=== PATIENT | male | born 1990 | race Caucasian/White ===

== ENCOUNTER 2025-03-15 08:57 | Emergency (ER) | payer OTHER, SELFPAY ==
--- NOTE | 2025-03-15 09:03 | ED.WOUNDLAC ---
HPI - Wound/Laceration General Chief Complaint: Wound/Laceration Stated Complaint: FINGER LACERATION Time Seen by Provider: 03/15/25 09:05 Source: patient Mode of arrival: ambulatory Limitations: no limitations History of Present Illness HPI narrative: Ray is a 35-year-old male patient presenting to the clinic today with complaints of a cut to his right middle distal medial finger. He reports he cut it at work approximately 1 hour ago. Bleeding is controlled. Tetanus is up-to-date per patient. Sensation, circulation, and motion of the right middle finger normal Related Data Home Medications ?Medication ?Instructions ?Recorded ?Confirmed ?Last Taken ?Type No Home Medications 03/15/25 03/15/25 Unknown History Allergies Allergy/AdvReac Type Severity Reaction Status Date / Time Penicillins Allergy Mild Rash Verified 03/15/25 09:12 Review of Systems Review of Systems: Pertinent positives per HPI. Patient denies any fever, chills, rash, headache, visual changes, dizziness, cough, runny nose, sore throat, shortness of breath, chest pain, palpitations, nausea, vomiting, diarrhea, constipation, abdominal pain, or any urinary issues. PMFSH Comments At the time of my signature, I reviewed and agree with the nursing past medical, surgical, social, and family history. There is no relevant family history pertinent to the patient complaint. Exam Narrative: General: Well-developed, well nourished, in no apparent distress Head: Normocephalic, atraumatic. Cardio: Regular rate and rhythm, s1 and s2 normal, no murmur appreciated. Resp: Clear to auscultation bilaterally, no rhonchi, rales, wheezing or rubs. Integumentary: [place], warm, and dry, 1 cm laceration to the right 3rd distal medial finger without nail involvement, bleeding controlled Course Course Emergency Course: Portions of this record may have been created with voice recognition software. Level of Care: Express Care Visit Vital Signs Vital signs: Vital Signs Temperature 36.6 C 03/15/25 09:07 Pulse Rate 76 03/15/25 09:07 Respiratory Rate 14 03/15/25 09:07 Blood Pressure 133/87 03/15/25 09:07 Pulse Oximetry 100 03/15/25 09:07 Oxygen Delivery Room Air 03/15/25 09:07 Temperature 36.6 C 03/15/25 09:07 Pulse Rate 76 03/15/25 09:07 Respiratory Rate 14 03/15/25 09:07 Blood Pressure 133/87 03/15/25 09:07 Pulse Oximetry 100 03/15/25 09:07 Oxygen Delivery Room Air 03/15/25 09:07 Vital signs reviewed MDM - Wound/Laceration MDM Narrative Medical decision making narrative: At the time of visit patient is resting comfortably on the exam table. Patient appears to be nontoxic. Complaints of a cut to his right middle distal medial finger. He reports he cut it at work approximately 1 hour ago. Bleeding is controlled. Tetanus is up-to-date per patient. Sensation, circulation, and motion of the right middle finger normal. On exam patient has a 1 cm laceration to the right 3rd mid distal finger. Discussed laceration repair risk and benefits and patient agrees to procedure. Procedures: Laceration repair was performed. Wound was cleansed with antiseptic wound wash, lidocaine 0.5 mL injected into the surrounding wound tissue, 5-0 3 interrupted sutures were placed bringing wound edges well approximate. Patient tolerated well. Dressing was applied Plan: Patient has laceration to the right middle distal medial 5th finger. Laceration repair was performed. Sutures out in 7 days. Work note was given for today. Supportive measures were discussed with the patient and they voiced understanding discharge instructions and agrees to treatment plan. Return precautions reviewed Differential Diagnosis Differential diagnosis: Likely laceration, abscess, abrasion and avulsion of skin Discharge Plan Discharge Clinical Impression: Finger laceration Qualifiers: Encounter type: initial encounter Finger: middle finger Damage to nail status: without damage Foreign body presence: without foreign body Laterality: right Qualified Code(s): S61.212A - Laceration without foreign body of right middle finger without damage to nail, initial encounter Patient Disposition: Home Condition: Stable Instructions: Antibiotic Form, Care For Your Stitches (ED), Laceration (ED) Additional Instructions: Leave bandage on for 24 hours then may remove and apply band aide covering as needed. Keep wound clean and dry Wash daily with soap and water May take Tylenol/ibuprofen as needed for pain as per bottle directions Skin sutures out in 7 days. Watch for signs and symptoms of infection- redness, streaking, swelling, purulent discharge, or increase in pain. Follow up with your PCP for suture removal or return to the Express care. Patient Language: Wolof Prescriptions: No Action No Home Medications Follow-up/Referrals: PHYSICIAN,PLANT SPECIALIST [Primary Care Provider] - Stand Alone Forms: Work/School Release IP Time of Disposition: 09:34 Quality NIHSS Nursing Documentation ED NIHSS nursing documentation: reviewed/agree
[2025-03-15 09:07] VITALS: BP 133/87; PULSE 76; RESP 14; TEMP 36.6; O2SAT 100
[2025-03-15] MEDS: LIDOCAINE 1% LOCAL INJ 2 ML AMPUL INFILTRATE (09:18)
== END 2025-03-15 09:37 | disposition home or self-care (01) ==
PROVIDERS: Emergency Provider Nurse Practitioner Family
DX: S61.212A Laceration without foreign body of right middle finger without damage to nail, initial encounter (principal); W45.8XXA Other foreign body or object entering through skin, initial encounter
CPT/HCPCS: 12001; 99212; G0463; J2003